=== PATIENT | female | born 1990 | race Hispanic/Latino ===

== ENCOUNTER 2016-03-19 16:36 | Emergency (ER) | payer OTHER ==
[~2016-03-19] VITALS: Ht 162.6 cm; Wt 88.6 kg
[2016-03-19 16:45] VITALS: BP 95/39; PULSE 70; RESP 16; O2SAT 100
--- NOTE | 2016-03-19 16:59 | ED.REPORT ---
HPI-Preg Under 20 Weeks Date of Service Mar 19, 2016 ED Provider: Douglas Maxwell MD Pt is a 26 year old female with a hx of ovarian cysts presenting to the ED complaining of intermittent lower outside bilateral abdominal cramping onset 2 weeks ago. Denies vaginal bleeding, dysuria. She had multiple positive tests 4 days ago and reports that her last normal menstrual period was January 23. This is her fourth , with 3 normal vaginal deliveries. Nursing Notes Stated Complaint: & CRAMPING Chief Complaint: Female Abdominal Pain Nursing Notes Reviewed: Yes Allergies: Coded Allergies: No Known Allergies (Unverified , 03/19/16) General Time Seen by Provider: 18:44 Chief Complaint Abdominal cramping Context: : Preg test pos urine, Last NL menst period (January 24, 2016 ) Hx Obtained From: Patient Arrived By: Walk-in Onset Occurred: More than a week ago... (2 weeks) Symptom Duration: Since onset Progression Since Onset: Constant Location: : Abdomen lower: LLQ: RLQ Quality: Painful Severity: Current: Mild Severity: Maximum: Moderate Recent Healthcare: No recent hospitalization, Recent doctor visit Similar Sx Previous: No Risk-Preg Under 20 Weeks Ectopic Risk Stratification No History of Infertility, No Prior Ectopic, No Tubal Ligation RF Statements: Risk factors reviewed Past Medical History Past Medical History Ovarian cysts Past Surgical History denies Smoking History Unknown if Ever Smoker Ambulatory Status Independent Review of Systems GI: Reports: Abdominal pain Female: Reports: , Denies: Dysuria, Vaginal bleeding - abnl Complete sys rev & neg: except as marked. Physical Exam Initial Vital Signs Vital Signs (First) Date Time Temp Pulse Resp B/P Pulse Ox O2 Delivery O2 Flow Rate FiO2 03/19/16 16:45 36.3 70 16 95/39 100 Room Air Initial VS: Reviewed Head / Eyes: Atraumatic, Normocephalic, PERRL ENT: Mucous membranes moist, Conjunctiva normal, No scleral icterus Respiratory: Breath sounds normal, Clear to auscultation, No respiratory distress Cardiovascular: Regular rate & rhythm, Heart sounds normal, Intact distal pulses Skin: Warm, Dry, No cyanosis Neurologic: Alert, Oriented, Nonfocal Psychiatric: Mood/affect normal, Behavior normal, Normal thought content General/Constitutional: Awake, Alert, No acute distress, Well appearing Abdomen: Soft, Non-tender Back: No CVA tenderness Interpretation & Diagnostics Lab Results Interpretation Result Diagram: 03/19/16 1750 Test 03/19/16 17:15 03/19/16 17:50 03/19/16 17:57 Urine Color Yellow (YELLOW) Urine Appearance Hazy (CLEAR,HAZY) Urine pH 6.5 (5.0-8.0) Urine Specific Meta 1.025 (1.003-1.035) Urine Protein Negativemg/dL (NEG,TRACE) Urine Glucose (UA) Negativemg/dL (NEGATIVE) Urine Ketones Negativemg/dL (NEGATIVE) Urine Occult Blood Trace (NEGATIVE) Urine Nitrite Negative (NEGATIVE) Urine Bilirubin Negative (NEGATIVE) Urine Urobilinogen Normalmg/dL (NORMAL) Urine Leukocyte Esterase Negative (NEGATIVE) Urine RBC 0-2/hpf (0-2) Urine WBC 0-5/hpf (0-5) Urine Epithelial Cells Many/hpf (NONE-MOD) Urine Crystals None seen (NONE SEEN) Urine Bacteria Moderate/hpf (NONE-FEW) Urine Hyaline Casts None/lpf (NONE) Urine Granular Casts None seen (NONE SEEN) Urine Waxy Casts None seen (NONE SEEN) Urine Red Blood Cell Casts None seen (NONE SEEN) Urine White Blood Cell Casts None seen (NONE SEEN) Urine Mucus None seen (None Seen) Urine Trichomonas None seen (NONE SEEN) Urine Yeast None (NONE SEEN) Urinalysis Comment None Urine Culture Reflexed Indicated White Blood Count 8.3th/mm3 (3.8-10.1) Red Blood Count 4.39mil/mm3 (3.90-5.20) Hemoglobin 13.0g/dL (12.0-15.6) Hematocrit 39.0% (35.0-46.0) Mean Corpuscular Volume 88.8fL (81-100) Mean Corpuscular Hemoglobin 29.6pg (27.0-35.0) Mean Corpuscular Hemoglobin Concent 33.3% (32.0-37.0) Red Cell Distribution Width 12.5% (12.3-15.4) Platelet Count 183bil/L (150-400) HCG Beta Subunit 2054mIU/mL Hold Cannon Top Tube Received (Received) US Focused OB PROCEDURE: US OB<14 WKS+OB TRANSVAG IMPRESSION: There are 2 anechoic foci within the uterine cavity, which could represent twin gestations (at 5 weeks 0 day) versus a single intrauterine gestation, with an adjacent small tasha-gestational hemorrhage. Routine clinical and sonographic followup is recommended. The adnexa are not well seen. Dictated by: Gregory Arvizu M.D. on 03/19/2016 at 20:01 Exam Performed by: Radiologist Exam Interpreted by: Radiologist Indication: Qual urine hCG positive, Abdominal pain Re-Eval/Medical Decision Re-Evaluation/Progress : Time of Eval: 21:42 Patient Status: Condition improved Re-Evaluation/Progress Note: Discussed ultrasound results and plan for discharge. Pt understands and agrees with plan. Counseled Regarding: Diagnosis, Lab results, Need for follow-up, When/why to return to ED Discharge & Departure Primary Impression: Pelvic pain affecting in first trimester, antepartum Disposition: Home Discharge Condition All VS Reviewed: Yes Condition: Improved Additional Instructions: Tylenol as needed, referred to primary care, see downtime discharge form Referrals: Kyung Moya (PCP) Scribe Attestation Portions of this note were transcribed by Stephanie Correa. I, Dr. Maxwell personally performed the history, physical exam and medical decision-making; I reviewed and confirmed the accuracy of the information in the transcribed note. Signed by : Eder Gillespie, 03/19/2015 and [id number]. copies to: Kyung Moya Donald L MD Mar 19, 2016 16:59 STEPHANIE CORREA Mar 19, 2016 18:48
[2016-03-19 17:34] LABS: APPEARANCE,URINE HAZY (CLEAR,HAZY); COLOR,URINE YELLOW (YELLOW)
[2016-03-19 17:35] LABS: OCCULT BLOOD,URINE TRACE (NEGATIVE); PH,URINE 6.5 (5.0-8.0); UROBILINOGEN,URINE NORMAL (NORMAL)
[2016-03-19 18:07] LABS: Mean Corpuscular Hemoglobin 29.6 pg (27.0-35.0); Mean Corpuscular Volume 88.8 fL (81-100)
[2016-03-19 19:09] VITALS: BP 93/53; PULSE 74; RESP 16; O2SAT 99
--- NOTE | 2016-03-19 20:06 | DRSVH ---
PROCEDURE: US OB<14 WKS+OB TRANSVAG INDICATIONS: pelvic pain, concern for ectopic TECHNIQUE: Real-time scanning was performed of the fetus and maternal pelvic organs, with image documentation. Endovaginal scanning was also performed to better visualize the fetus and maternal ovaries. COMPARISON: None. FINDINGS: Embryo: There are 2 adjacent hypoechoic regions within the uterine canal, measuring 3 mm in diameter, and 7 mm in diameter. No cardiac activity is seen within the anechoic foci. Maternal organs: Ovaries are not well seen secondary to bowel gas. Limited images through the kidne ys demonstrate no hydronephrosis. IMPRESSION: There are 2 anechoic foci within the uterine cavity, which could represent twin gestation s (at 5 weeks 0 day) versus a single intrauterine gestation, with an adjacent small tasha-gestational hemorrhage. Routine clinical and sonographic followup is recommended. The adnexa are not well seen. Dictated by: Gregory Arvizu M.D. on 03/19/2016 at 20:01 Approved by: Gregory Arvizu M.D. on 03/19/2016 at 20:05
[2016-03-19 21:14] VITALS: BP 93/62; PULSE 67; RESP 16; O2SAT 100
== END 2016-03-19 23:23 | disposition home or self-care (01) ==
LOC: SED 16:36
DX: O26.891 Other specified pregnancy related conditions, first trimester (principal); R10.2 Pelvic and perineal pain; N83.209 Unspecified ovarian cyst, unspecified side; Z3A.00 Weeks of gestation of pregnancy not specified

== ENCOUNTER 2016-04-04 18:22 | Emergency (ER) | payer OTHER ==
[~2016-04-04] VITALS: Ht 165.1 cm; Wt 89.1 kg
[2016-04-04 18:46] VITALS: BP 101/65; PULSE 70; RESP 14; O2SAT 100
--- NOTE | 2016-04-04 21:10 | ED.REPORT ---
HPI-Preg Under 20 Weeks Date of Service Apr 04, 2016 ED Provider: Guzman Tracey MD This is a 26 year old female who is 6 weeks and 2 days presenting to the emergency department complaining of vaginal bleeding that began yesterday. Pt states that yesterday she developed vaginal spotting and had a normal US. Today she developed increased bleeding with blood clots, associated with suprapubic abdominal pain and back pain. Soaking 2 pads in less than one hour. . Denies fever, chills, nausea, vomiting, diarrhea, or constipation. Nursing Notes Stated Complaint: 7 WEEKS , HEAVY BLEEDING Chief Complaint: & Delivery Nursing Notes Reviewed: Yes Allergies: Coded Allergies: No Known Allergies (Unverified , 03/19/16) General Time Seen by Provider: 21:14 Chief Complaint Vaginal bleeding Context: : Known 1st trim Hx Obtained From: Patient Arrived By: Walk-in Onset Occurred: Yesterday Symptom Duration: Since onset Severity: Current: Mild Pertinent Negative: Pt denies other symptoms Recent Healthcare: No recent hospitalization, Recent doctor visit Similar Sx Previous: No Past Medical History Past Medical History Ovarian cysts Past Surgical History denies Smoking History Unknown if Ever Smoker Ambulatory Status Independent Review of Systems Constitutional: Denies: Chills, Fever Respiratory: Denies: Shortness of breath GI: Reports: Abdominal pain, Denies: Constipation, Diarrhea, Nausea, Vomiting Female: Reports: Vaginal bleeding - abnl, Denies: Dysuria, Flank pain Musculoskeletal: Reports: Back pain Complete sys rev & neg: except as marked. Physical Exam Initial Vital Signs Vital Signs (First) Date Time Temp Pulse Resp B/P Pulse Ox O2 Delivery O2 Flow Rate FiO2 04/04/16 18:46 36.4 70 14 101/65 100 Room Air Initial VS: Unavailable Head / Eyes: Atraumatic, Normocephalic, PERRL ENT: Mucous membranes moist, Conjunctiva normal, No scleral icterus Neck: Supple, Non-tender, Full range of motion Respiratory: Breath sounds normal, Clear to auscultation, No respiratory distress Cardiovascular: Regular rate & rhythm, Heart sounds normal, Intact distal pulses Extremities: Vascular intact, Neuro intact, No swelling, No tenderness Skin: Warm, Dry, No cyanosis Neurologic: Alert, Oriented, Nonfocal Psychiatric: Mood/affect normal, Behavior normal, Normal thought content General/Constitutional: Awake, Alert Abdomen: Soft, Non-tender, No guarding, No rebound Female Genitourinary: Patient refused exam : Patient refused exam Interpretation & Diagnostics Interpretation & Diagnostics: US IMPRESSION: 1. The intrauterine visualized on the comparison study dated 04/03/16 is nonvisualized on the current study. This finding in combination with increased endometrial vascularity suggests in progress. Additionally, retained products of conception cannot be excluded. If there is continued heavy bleeding, repeat ultrasound is recommended to further evaluate for retained products of conception. These findings were discussed with Dr. Tracey by the employment attorney at 9:30 PM on 04/04/16. Dictated by: Charlee Ibarra M.D. on 04/04/2016 at 21:47 Approved by: Charlee Ibarra M.D. on 04/04/2016 at 21:51 Lab Results Interpretation Result Diagram: 04/04/16220304/04/162203 Test 04/04/16 22:04 White Blood Count 7.7th/mm3 (3.8-10.1) Red Blood Count 4.22mil/mm3 (3.90-5.20) Hemoglobin 12.7g/dL (12.0-15.6) Hematocrit 38.1% (35.0-46.0) Mean Corpuscular Volume 90.3fL (81-100) Mean Corpuscular Hemoglobin 30.1pg (27.0-35.0) Mean Corpuscular Hemoglobin Concent 33.3% (32.0-37.0) Red Cell Distribution Width 12.5% (12.3-15.4) Platelet Count 207bil/L (150-400) Neutrophils (%) (Auto) 53.9% (40-74) Lymphocytes (%) (Auto) 35.2% (14-46) Monocytes (%) (Auto) 7.4% (4-12) Eosinophils (%) (Auto) 3.0% (0-5) Basophils (%) (Auto) 0.4% (0-3) Sodium Level 137mEq/L (134-144) Potassium Level 4.1mEq/L (3.5-5.2) Chloride Level 101mEq/L (97-108) Carbon Dioxide Level 25mmol/L (18-29) Blood Urea Nitrogen 13mg/dL (6-20) Creatinine 0.46mg/dL (0.57-1.00) Estimat Glomerular Filtration Rate 235mL/min (>59) Glucose Level 104mg/dL (60-99) Calcium Level 8.6mg/dL (8.5-10.1) Total Bilirubin 0.2mg/dL (0.0-1.2) Aspartate Amino Transf (AST/SGOT) 20U/L (0-50) Alanine Aminotransferase (ALT/SGPT) 14U/L (0-32) Alkaline Phosphatase 69U/L (25-150) Total Protein 7.1g/dL (6.4-8.4) Albumin 3.7g/dL (3.4-5.0) HCG Beta Subunit 1855mIU/mL Re-Eval/Medical Decision Med Decision/Clinical Course 26-year-old female 7 weeks by last menstrual period presenting complaining of vaginal bleeding. Patient had normal intrauterine ultrasound yesterday. She has been bleeding since yesterday and reports she passed products of conception. No signs and symptoms anemia. Her vital signs are stable. Repeat pelvic ultrasound showed no intrauterine consistent with spontaneous . HCG is decreased from 2 weeks ago. Recommend she follow up with primary doctor in 2 days. Return precautions given regarding signs and symptoms anemia, worsening bleeding, pain, fevers, any other new or worsening symptoms. Re-Evaluation/Progress : Time of Eval: 22:57 Re-Evaluation/Progress Note: Discussed lab results and plan for d/c, all questions addressed. Counseled Regarding: Diagnosis, Lab results, Need for follow-up, When/why to return to ED Discharge & Departure Primary Impression: Spontaneous Disposition: Home Discharge Condition All VS Reviewed: Yes Condition: Stable Patient Instructions: Spontaneous Miscarriage (ED) Additional Instructions: Thank you for seeking care at the emergency department today. Follow-up with your primary care provider. Return to the emergency department if you develop any new or worsening symptoms such as increased vaginal bleeding, lightheadedness, dizziness, weakness, or shortness of breath. Referrals: Kyung Moya (PCP) Scribe Attestation Portions of this note were transcribed by Hanh Buckley. I, Dr. Tracey personally performed the history, physical exam and medical decision-making; I reviewed and confirmed the accuracy of the information in the transcribed note. Signed by Eder Hare, 04/04/2016 at 23:00. Guzman Tracey MD Apr 04, 2016 21:10 HANH BUCKLEY Apr 04, 2016 21:19
--- NOTE | 2016-04-04 21:53 | DRSVH ---
PROCEDURE: US PELVIC SONOGRAM + TRANSVAGINAL SONOGRAM INDICATIONS: vaginal bleeding TECHNIQUE: Real-time scanning was performed of the pelvic organs, with image documentation. Additional endovagi nal scanning was necessary due to incomplete visualization of the adnexal and endometrial structures by transabdominal scanning. COMPARISON: [facility], US, US OB<14 WKS+OB TRANSVAG, 04/03/2016, 9:29. FINDINGS: Transabdominal scanning: The kidneys were not evaluated. Endovaginal scanning: Uterus: Uterus is normal in size at 8.8 x 4.2 x 4.2 cm. cm. The endometrium measures 6.9 mm in comb ined thickness. Increased vascularity is present within the endometrium. The gestational sac, pole, and no plaque visualized on the study dated 04/03/16 are not visualized on the current study. Ovaries: The right ovary measures 3.1 x 1.8 x 3.1 cm. A corpus luteum is present within the right ova ry which measures 1.4 x 1.3 x 1.4 cm. The left ovary measures 2.8 x 1.6 x 2.2 cm and demonstrates a n ormal echotexture. IMPRESSION: 1. The intrauterine visualized on the comparison study dated 04/03/16 is nonvisualized on current study. This finding in combination with increased endometrial vascularity suggests in progress. Additionally, retained products of conception cannot be excluded. If there is continued heavy bleeding, repeat ultrasound is recommended to further evaluate for retained products of concep tion. These findings were discussed with Dr. Tracey by the associate professor of library science at 9:30 PM on 04/04/16. Dictated by: Charlee Ibarra M.D. on 04/04/2016 at 21:47 Approved by: Charlee Ibarra M.D. on 04/04/2016 at 21:51
[2016-04-04 22:13] LABS: BASOPHILS % (AUTO) 0.4 % (0-3); MONOCYTES % (AUTO) 7.4 % (4-12); Mean Corpuscular Hemoglobin 30.1 pg (27.0-35.0); Mean Corpuscular Volume 90.3 fL (81-100); NEUTROPHILS % (AUTO) 53.9 % (40-74); Platelet Count 207 bil/L (150-400)
[2016-04-04 23:09] VITALS: BP 122/74; PULSE 68; RESP 14; O2SAT 98
== END 2016-04-04 23:10 | disposition home or self-care (01) ==
LOC: SED 18:22
DX: O03.9 Complete or unspecified spontaneous abortion without complication (principal); Z3A.01 Less than 8 weeks gestation of pregnancy

== ENCOUNTER 2016-08-17 12:35 | Emergency (ER) | payer OTHER ==
[~2016-08-17] VITALS: Ht 162.6 cm; Wt 91.8 kg
[2016-08-17 12:46] VITALS: BP 103/70; PULSE 80; RESP 12; O2SAT 99
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
[2016-08-17 14:02] LABS: BASOPHILS % (AUTO) 0.4 % (0-3); EOSINOPHILS % (AUTO) 2.2 % (0-5); Mean Corpuscular Hemoglobin 30.4 pg (27.0-35.0); Mean Corpuscular Volume 87.1 fL (81-100); NEUTROPHILS % (AUTO) 66.2 % (40-74); Platelet Count 184 bil/L (150-400)
--- NOTE | 2016-08-17 16:53 | DRSVH ---
+/- 7 days from 14 weeks to 15 weeks 6 days gestation, +/- 10 days from 16 weeks to 21 weeks 6 days g estation, +/- 2 weeks from 22 weeks to 27 weeks 6 days gestation, +/- 3 weeks for 28 weeks gestation or later. PROCEDURE: US OB<14 WKS INDICATIONS: vag bleeding OUTSIDE/PRIOR DATING DATA: First dating scan (date and location): 07/12/16. Estimated date of delivery (YARITZA) from first dating scan: 02/19/17. TECHNIQUE: Real-time scanning was performed of the fetus and maternal pelvic organs, with image documentation. Endovaginal scanning was also performed to better visualize the fetus and maternal ovaries. COMPARISON: None. FINDINGS: Embryo: OB-SOCIAL SERVICE DIRECTOR Ultrasound Procedure Report Early Gestation [facility] [place] Rump Length: 7.03 cm Gestational Age (CRL): 13 weeks, 2 days Summary Fetus Summary Heart Rate: 183 bpm Comments: A normal yolk sac is noted. Small subchorionic hematoma is present at the lower uterine s egment measuring 3.1 x 3.6 x 1.0 cm Measurement variability in dating: +/- 4 weeks by LMP, +/- 7 days by mean sac diameter (use before 6 weeks gestation if crown-rump length not able to be measured), +/- 5 days by crown-rump length (up t o 8 weeks 6 days gestation), +/- 7 days by crown-rump length (from 9 weeks to 13 weeks 6 days gestati on). Maternal organs: Ovaries within normal limits. Limited images through the kidneys demonstrate no hy dronephrosis. IMPRESSION: Single living 13 week 2 day intrauterine gestation is present and small subchorionic hem atoma involving the lower uterine segment is present. Followup is recommended. Rivasvenus Kathleensh PAC given results by the manager medicaid at 1510 hrs. 08/17/2016. Dictated by: Denilson Justin RRA Interpreted: Betsy Simpson MD on 08/17/2016 at 16:13 Approved by: Betsy Simpson MD, PhD on 08/17/2016 at 16:51
[2016-08-17 18:33] VITALS: BP 108/54; PULSE 82; RESP 16; O2SAT 100
== END 2016-08-17 18:33 | disposition home or self-care (01) ==
LOC: SED 12:35
DX: O20.9 Hemorrhage in early pregnancy, unspecified (principal); Z3A.13 13 weeks gestation of pregnancy; Z87.828 Personal history of other (healed) physical injury and trauma

== ENCOUNTER 2016-08-29 10:10 | Emergency (ER) | payer OTHER ==
[~2016-08-29] VITALS: Ht 162.6 cm; Wt 91.4 kg
[2016-08-29 10:14] VITALS: BP 110/76; PULSE 69; RESP 18; O2SAT 100
--- NOTE | 2016-08-29 10:27 | ED.REPORT ---
HPI-Preg Under 20 Weeks Date of Service Aug 29, 2016 ED Provider: Douglas Maxwell MD Patient is a 26 year old female who is at 14 weeks gestation who presents to the ED complaining of dark red vaginal bleeding onset today. She went through 4 pads in 3 hours but her bleeding has since resolved. Associated symptoms include back pain and pelvic pressure. She denies dysuria, abdominal pain, or any other symptoms. She was seen for similar symptoms in this department 12 days ago s/p tripping over a bicycle and falling in her garage. Her ACCOUNTING POLICY CONSULTANT is Dr. Hoyos and she has an appointment in 4 days. She is RH positive. An Ultrasound on August 07 shows she was at 13 weeks 2 days gestation with a small subchorionic hemorrhage. Nursing Notes Chief Complaint: Female Abdominal Pain Nursing Notes Reviewed: Yes Allergies: Coded Allergies: No Known Allergies (Unverified , 03/19/16) General Time Seen by Provider: 10:24 Chief Complaint Vaginal bleeding Hx Obtained From: Patient Arrived By: Walk-in Onset Occurred: 1 - 4 hours ago Symptom Duration: Since onset Progression Since Onset: Gradually improving Immunizations: Unknown Recent Healthcare: Recent doctor visit Similar Sx Previous: Yes Past Medical History Past Medical History Ovarian cysts Past Surgical History denies Smoking History Unknown if Ever Smoker Social History Alcohol Use: Denies alcohol use Drug Use: Denies drug use Other Social History: Good social support, Ambulatory Status Independent Review of Systems Review of Systems Note: +pelvic pressure GI: Denies: Abdominal pain Female: Reports: Vaginal bleeding - abnl, Denies: Dysuria Musculoskeletal: Reports: Back pain Complete sys rev & neg: except as marked. Physical Exam Initial Vital Signs Vital Signs (First) Date Time Temp Pulse Resp B/P Pulse Ox O2 Delivery O2 Flow Rate FiO2 08/29/16 10:14 36.4 69 18 110/76 100 Room Air Initial VS: Reviewed, Vital signs normal Head / Eyes: Atraumatic, Normocephalic Neck: Full range of motion Respiratory: Breath sounds normal, Clear to auscultation, No respiratory distress Cardiovascular: Regular rate & rhythm Skin: Warm, Dry Neurologic: Alert, Oriented, Nonfocal Psychiatric: Mood/affect normal, Behavior normal, Normal thought content General/Constitutional: Awake, Alert, No acute distress Abdomen: Atraumatic, Non-tender Female Genitourinary: Hearth Feeder present Normal external genitalia Small amount of blood at cervical Os No pelvic tenderness : FHTs NL FHT 144 Back: No CVA tenderness Interpretation & Diagnostics Lab Results Interpretation Result Diagram: 08/29/16 1046 Test 08/29/16 10:11 08/29/16 10:46 Urine Color Yellow (YELLOW) Urine Appearance Slightly cloudy Urine pH 7.5 (5.0-8.0) Urine Specific [place] 1.015 (1.003-1.035) Urine Protein Negativemg/dL (NEG,TRACE) Urine Glucose (UA) Negativemg/dL (NEGATIVE) Urine Ketones Negativemg/dL (NEGATIVE) Urine Occult Blood Negative (NEGATIVE) Urine Nitrite Negative (NEGATIVE) Urine Bilirubin Negative (NEGATIVE) Urine Urobilinogen Normalmg/dL (NORMAL) Urine Leukocyte Esterase Trace (NEGATIVE) Urine RBC 0-2/hpf (0-2) Urine WBC 0-5/hpf (0-5) Urine Epithelial Cells Moderate/hpf (NONE-MOD) Urine Crystals None seen (NONE SEEN) Urine Bacteria Moderate/hpf (NONE-FEW) Urine Hyaline Casts None/lpf (NONE) Urine Granular Casts None seen (NONE SEEN) Urine Waxy Casts None seen (NONE SEEN) Urine Red Blood Cell Casts None seen (NONE SEEN) Urine White Blood Cell Casts None seen (NONE SEEN) Urine Mucus None seen (None Seen) Urine Trichomonas None seen (NONE SEEN) Urine Yeast None (NONE SEEN) Urinalysis Comment None Urine Culture Reflexed Indicated White Blood Count 7.8th/mm3 (3.8-10.1) Red Blood Count 4.15mil/mm3 (3.90-5.20) Hemoglobin 12.5g/dL (12.0-15.6) Hematocrit 35.9% (35.0-46.0) Mean Corpuscular Volume 86.5fL (81-100) Mean Corpuscular Hemoglobin 30.1pg (27.0-35.0) Mean Corpuscular Hemoglobin Concent 34.8% (32.0-37.0) Red Cell Distribution Width 12.4% (12.3-15.4) Platelet Count 181bil/L (150-400) Neutrophils (%) (Auto) 67.0% (40-74) Lymphocytes (%) (Auto) 23.9% (14-46) Monocytes (%) (Auto) 7.0% (4-12) Eosinophils (%) (Auto) 1.5% (0-5) Basophils (%) (Auto) 0.3% (0-3) Re-Eval/Medical Decision Med Decision/Clinical Course First trimester vaginal bleeding for 1 hour in a patient with a known intrauterine and Rh+. There is no tissue in the os os appears to be closed and bleeding has resolved. heart tones are present. Patient is advised to refrain from intercourse and heavy lifting and follow-up with her family doctor. Re-Evaluation/Progress : Time of Eval: 12:19 Re-Evaluation/Progress Note: Discussed plan for discharge. Patient understands and agrees with plan. All questions addressed at this time. Counseled Regarding: Diagnosis, Lab results, Need for follow-up, When/why to return to ED Discharge & Departure Primary Impression: First trimester bleeding Disposition: Home Discharge Condition All VS Reviewed: Yes Condition: Improved Additional Instructions: Emergency department evaluation today included interview, examination, labs, review of past records and heart tones. still appears to be viable, blood count is good and urine does not appear to be infected. We suggest you avoid heavy lifting and intercourse. Follow-up with your OB doctor as planned in 4 days. Return to emergency department for heavy bleeding cramping fevers frequent vomiting. Referrals: Yue Hoyos MD Scribe Attestation Portions of this note were transcribed by Katelynn Mcgowan. I, Dr. Maxwell personally performed the history, physical exam and medical decision-making; I reviewed and confirmed the accuracy of the information in the transcribed note. Signed by: Katelynn Mcgowan 08/29/16, 1224 copies to: Yue Hoyos MD, Donald L MD Aug 29, 2016 10:27 KATELYNN MCGOWAN Aug 29, 2016 11:20
[2016-08-29 10:53] LABS: BASOPHILS % (AUTO) 0.3 % (0-3); EOSINOPHILS % (AUTO) 1.5 % (0-5); Mean Corpuscular Hemoglobin 30.1 pg (27.0-35.0); Mean Corpuscular Volume 86.5 fL (81-100); Platelet Count 181 bil/L (150-400)
[2016-08-29 11:12] LABS: APPEARANCE,URINE SLIGHTLY CLOUDY (CLEAR,HAZY); COLOR,URINE YELLOW (YELLOW)
[2016-08-29 11:13] LABS: OCCULT BLOOD,URINE NEGATIVE (NEGATIVE); PH,URINE 7.5 (5.0-8.0); UROBILINOGEN,URINE NORMAL (NORMAL)
[2016-08-29 12:35] VITALS: BP 110/49; PULSE 61; RESP 18; O2SAT 97
== END 2016-08-29 12:35 | disposition home or self-care (01) ==
LOC: SED 10:10
DX: O20.9 Hemorrhage in early pregnancy, unspecified (principal); Z3A.14 14 weeks gestation of pregnancy; Z91.81 History of falling